=== PATIENT | male | born 1985 | race African-American/Black ===

== ENCOUNTER 2018-08-20 06:06 | Emergency (ER) | payer MEDICAID, OTHER ==
[~2018-08-20] VITALS: Ht 172.7 cm; Wt 78.0 kg
[2018-08-20 06:16] VITALS: BP 134/93
[2018-08-20] MEDS ORDERED: KETOROLAC 60MG/2ML VIAL IM STA (06:50)
== END 2018-08-20 07:27 | disposition home or self-care (01) ==
LOC: ER 06:06
DX: M25.541 Pain in joints of right hand (principal); L03.317 Cellulitis of buttock; J45.909 Unspecified asthma, uncomplicated; Z98.890 Other specified postprocedural states
CPT/HCPCS: 99283; Z7610; J1885

== ENCOUNTER 2020-08-04 23:52 | Emergency (ER) | payer MEDICAID ==
[~2020-08-04] VITALS: Ht 172.7 cm; Wt 91.0 kg
[2020-08-05] MEDS ORDERED: LORAZEPAM 1MG TABLET PO ONE (01:45)
[2020-08-05 02:48] LABS: BASOPHILS % 0.5 % (0.0-2.0); EOSINOPHILS % 0.3 % (0.0-5.0); HEMATOCRIT. 42.4 % (42.0-52.0); HEMOGLOBIN. 14.4 g/dL (14.0-18.0); LYMPHOCYTES % 11.2 % (20.0-50.0); MEAN CORPUSCULAR HEMOGLOBIN 30.3 pg (28.0-32.0); MEAN CORPUSCULAR VOLUME 89.6 fL (80.0-94.0); MONOCYTES % 3.5 % (2.0-8.0); NEUTROPHILS % 84.5 % (40.0-76.0); PLATELET 207 x1000/uL (130-400); RED BLOOD CELL COUNT 4.74 mill/uL (4.7-6.1); RED CELL DISTRIBUTION WIDTH 12.6 % (11.6-14.6)
[2020-08-05 02:53] LABS: CHLORIDE 108 mEq/L (98-107)
[2020-08-05 04:38] VITALS: BP 150/80
== END 2020-08-05 05:12 | disposition home or self-care (01) ==
LOC: ER 23:52
DX: T40.7X1A Poisoning by cannabis (derivatives), accidental (unintentional), initial encounter (principal); R00.0 Tachycardia, unspecified; R07.89 Other chest pain; R00.2 Palpitations; Y92.89 Other specified places as the place of occurrence of the external cause; F12.988 Cannabis use, unspecified with other cannabis-induced disorder; J45.909 Unspecified asthma, uncomplicated; R03.0 Elevated blood-pressure reading, without diagnosis of hypertension
CPT/HCPCS: 36415; 71045; 80053; 84484; 85025; 93005; 99285; Z7610